=== PATIENT | female | born 1985 | race Caucasian/White ===

== ENCOUNTER 2017-05-28 11:14 | Emergency (ER) | payer OTHER ==
[~2017-05-28] VITALS: Ht 160 cm; Wt 77.3 kg
[~2017-05-28 11:14] MED LIST: FLUO-1 PO; LEVO50TA4 PO; MACR100C2 PO; PREN1CAP7 PO; VALT1TAB PO
[2017-05-28 11:29] VITALS: BP 137/64; PULSE 90; RESP 18
[2017-05-28 13:19] LABS: BLOOD, URINE NEG (NEG); GLUCOSE,URINE NEG (NEG); KETONE, URINE NEG (NEG); NITRITE,URINE NEG (NEG)
[2017-05-28 13:20] VITALS: TEMP 98.2; O2SAT 99
[2017-05-28 13:30] LABS: COMMENT (UR) CULT NOT INDICATED; CULTURE IF INDICATED CULT NOT INDICATED; METHOD OF COLLECTION CLEAN CATCH; RBC, URINE 0-3 /hpf (0-3); SQUAMOUS EPITHELIAL CELL URINE 0-5 /hpf (0-5); URINE COLOR YELLOW (YELLW/STRAW)
--- NOTE | 2017-05-28 13:51 | PD ---
HPI Chief Complaint: Abdominal Pain Time Seen by Provider: 12:44 Travel History International Travel<30 days: No Contact w/Intl Traveler<30days: No Traveled to known affect area: No History of Present Illness HPI 32-year-old female presents with lower abdominal pain that is been present for the past 2 weeks. Location is left lower quadrant. She states since she had implants placed for control she hasn't had a menstrual cycle since March. She states that she hasn't followed with her welt drawer for this pain yet. She denies any other associated symptoms including vaginal bleeding, vaginal discharge, fever or other concurrent complaints. Quality is pressure. Severity is moderate. She denies migration the pain but does state it goes around into her back some. PFSH Past Medical History Hiatal Hernia: Yes (umbilical hernia) Tetanus Vaccination: > 5 Years Influenza Vaccination: Yes ?: Not LMP: 1 year ago Para: 1 Past Surgical History Other Surgery: Yes (hernia) Social History Alcohol Use: No Tobacco Use: No Substance Use: No Allergies-Medications (Allergen,Severity, Reaction): Coded Allergies: No Known Allergies (Unverified , 09/06/16) Reported Meds & Prescriptions Reported Meds & Active Scripts Active Citranatal [place] ( W/O Vit A W/ Fe Fumar) 27-1-260 Mg Cap 1 Cap PO DAILY Macrobid (Nitrofurantoin Monoh/Nitrofur Macro) 100 Mg Cap 100 Mg PO BID Prozac (Fluoxetine HCl) 10 Mg Cap 10 Mg PO DAILY Levothyroxine (Levothyroxine Sodium) 50 Mcg Tab 50 Mcg PO DAILY Reported Valtrex (Valacyclovir HCl) 1 Gm Tab 1,000 Mg PO BID Review of Systems Except as stated in HPI: all other systems reviewed are Neg Physical Exam Narrative GENERAL: Well-nourished, well-developed patient. Well-appearing SKIN: Warm and dry. HEAD: Normocephalic and atraumatic. EYES: No injection or drainage. ENT: No nasal drainage noted. NECK: Supple, trachea midline. CARDIOVASCULAR: Regular rate and rhythm RESPIRATORY: Breath sounds equal bilaterally. No accessory muscle use. GASTROINTESTINAL: Abdomen soft, non-tender, nondistended. EXTREMITIES: No edema. BACK: Nontender without obvious deformity in midline, no CVA tenderness. NEUROLOGICAL: Awake and alert. Motor and sensory grossly within normal limits. Normal speech. Data Data Last Documented VS Vital Signs Date Time Temp Pulse Resp B/P (MAP) Pulse Ox O2 Delivery O2 Flow Rate FiO2 05/28/17 13:20 98.2 99 Room Air 05/28/17 11:29 90 18 137/64 (88) Orders Orders Urinalysis - C+S If Indicated (05/28/17 12:47) Ed Urine Pregnancytest Poc (05/28/17 12:47) Labs Laboratory Tests Test 05/28/17 13:00 Urine Collection Type CLEAN CATCH Urine Color YELLOW Urine Turbidity CLEAR Urine pH 7.0 Urine Specific [place] 1.022 Urine Protein NEG mg/dL Urine Glucose (UA) NEG mg/dL Urine Ketones NEG mg/dL Urine Occult Blood NEG Urine Nitrite NEG Urine Bilirubin NEG Urine Leukocyte Esterase NEG Urine RBC 0-3 /hpf Urine Squamous Epithelial Cells 0-5 /hpf Microscopic Urinalysis Comment CULT NOT INDICATED Urine Collection Time 13:00 MDM Medical Decision Making Medical Screen Exam Complete: Yes Emergency Medical Condition: Yes Medical Record Reviewed: Yes (past history confirmed) Differential Diagnosis Ectopic, cyst, stone, UTI Narrative Course Will check urinalysis, test and reevaluate UA is negative for infection and shows no signs of blood, test is negative, lengthy discussion with patient and she agrees to no further testing here and alternating Tylenol and Motrin with close gynecology follow-up. Given return instructions Diagnosis Primary Impression: Abdominal pain Qualified Codes: R10.32 - Left lower quadrant pain Patient Instructions: General Instructions Additional Instructions: Return as needed, follow with gynecology, alternate Tylenol and Motrin Med/Other Pt SpecificInfo: No Change to Meds Disposition: 01 DISCHARGE HOME Condition: Stable Melissa Hollis MD May 28, 2017 13:51
== END 2017-05-28 14:30 | disposition home or self-care (01) ==
LOC: PHED 11:14
DX: R10.32 Left lower quadrant pain (principal); Z87.39 Personal history of other diseases of the musculoskeletal system and connective tissue
CPT/HCPCS: 81001; 84703; 99283

== ENCOUNTER 2017-07-27 11:39 | Emergency (ER) | payer OTHER ==
[~2017-07-27] VITALS: Ht 160 cm; Wt 85.0 kg
[~2017-07-27 11:39] MED LIST changes: -LEVO50TA4 PO; -MACR100C2 PO; -VALT1TAB PO
[2017-07-27 11:40] VITALS: BP 123/70; PULSE 102; RESP 18; TEMP 98.5; O2SAT 100
[2017-07-27] MEDS ORDERED: METH500T3 PO (12:05)
[2017-07-27] MEDS ORDERED: LEXA10TA PO (12:05)
[2017-07-27] MEDS ORDERED: PRED20 PO (12:05)
--- NOTE | 2017-07-27 12:31 | PD ---
HPI . chronic low back pain Chief Complaint: Back/ Neck Pain or Injury Time Seen by Provider: 12:22 Travel History International Travel<30 days: No Contact w/Intl Traveler<30days: No Traveled to known affect area: No History of Present Illness HPI 32 year old female presents emergency department for evaluation of chronic low back pain. Patient has had this pain for 6 years. Patient denies any injury, trauma or fall prior to this current exacerbation. Patient denies any overuse. Patient denies any fever, chills, malaise. Patient denies any IV drug use. Patient denies any saddle numbness or incontinence of urine or stool. PFSH Past Medical History Hiatal Hernia: Yes (umbilical hernia) ?: Not LMP: lmp 07/19/2017 Para: 1 Past Surgical History Other Surgery: Yes (hernia) Social History Alcohol Use: No Tobacco Use: No Substance Use: No Allergies-Medications (Allergen,Severity, Reaction): Coded Allergies: No Known Allergies (Unverified Adverse Reaction, Unknown, 07/27/17) Reported Meds & Prescriptions Reported Meds & Active Scripts Active Reported Methocarbamol 500 Mg Tab 500 Mg PO TID Prednisone 20 Mg Tab 20 Mg PO DIRECTED 40 MG twice a day x 3 days, then 20 MG daily x 3 days, then 10 MG daily x 3 days Lexapro (Escitalopram Oxalate) 10 Mg Tab 10 Mg PO DAILY Review of Systems Except as stated in HPI: all other systems reviewed are Neg Physical Exam Narrative GENERAL: Well-nourished, well-developed 32-year-old female patient in no acute distress. Nontoxic appearing. SKIN: Focused skin assessment warm/dry. HEAD: Normocephalic. Atraumatic. EYES: No scleral icterus. No injection or drainage. NECK: Supple, trachea midline. No JVD or lymphadenopathy. CARDIOVASCULAR: Regular rate and rhythm without murmurs, gallops, or rubs. RESPIRATORY: Breath sounds equal bilaterally. No accessory muscle use. GASTROINTESTINAL: Abdomen soft, non-tender, nondistended. MUSCULOSKELETAL: Full range of motion noted in all extremities. No cyanosis, or edema. BACK: No midline spinal tenderness. No obvious deformity, ecchymosis, erythema, edema. No CVA tenderness. Data Data Last Documented VS Vital Signs Date Time Temp Pulse Resp B/P (MAP) Pulse Ox O2 Delivery O2 Flow Rate FiO2 07/27/17 11:40 98.5 102 18 123/70 (87) 100 Room Air MDM Medical Decision Making Medical Screen Exam Complete: Yes Emergency Medical Condition: Yes Differential Diagnosis Differential diagnoses include but not limited to sprain, strain, contusion, medical clearance, exacerbation of chronic back pain Narrative Course 32 year female presents emergency department for evaluation of exacerbation of chronic back pain. A medical screening exam was performed: At the time of evaluation the presenting medical condition was determined not to be of an emergent nature. The patient was given the option of receiving additional care, but declined. Patient was given options for additional community resources from which to obtain care. The Patient Has Been advised to seek medical attention for their presenting complaint. The patient has been advised to return to the ER at any time if an emergent condition develops. Diagnosis Primary Impression: Encounter for medical screening examination Condition: Stable Nini Falcon Jul 27, 2017 12:31
== END 2017-07-27 12:48 | disposition left against medical advice (07) ==
LOC: NEPK 11:39
DX: M54.9 Dorsalgia, unspecified (principal); G89.29 Other chronic pain; Z79.899 Other long term (current) drug therapy
CPT/HCPCS: 99281